=== PATIENT | male | born 1950 | race Caucasian/White ===

== ENCOUNTER → 2016-12-04 | Outpatient (CLI) | payer MEDICARE, OTHER ==
[~2016-12-04] MED LIST: ASPIR 8181 MG PO; BREO ELLIPTA 11 EACH INH; CILOSTAZOL50 MG PO; DALIRESP 500500 MCG PO; ELIQUIS2.5 MG PO; ENDOCET 10-3251 EACH PO; FLAGYL500 MG PO; IMDUR ER TAB 6060 MG PO; LEVEMIR100 UNIT/1 SQ; LIPITOR TAB 2020 MG PO; LOPRESSOR50 MG PO; METOPROLOL SUCC50 MG PO; MULTAQ 400 MG400 MG PO; NEURONTIN 300300 MG PO; NITROSTAT 0.40.4 MG SL; NORVASC 5 MG TAB5 MG PO; NOVOLOG FL100 UNIT/1 SQ; PLAVIX 75 MG TA75 MG PO; PRAVACHOL40 MG PO; PROTONIX40 MG PO; RANEXA1000 MG PO; SINGULAIR10 MG PO; SPIRIVA18 MCG INH; TRICOR145 MG PO; lactinex PO
== END ==
LOC: SLEEP 21:30
DX: G47.33 Obstructive sleep apnea (adult) (pediatric) (principal)
CPT/HCPCS: 95810

== ENCOUNTER 2017-03-03 15:30 | Emergency (ER) | payer MEDICARE, OTHER ==
[2017-03-03 17:00] LABS: HEMOGLOBIN 12.3 gm/dl (14.0-17.5); RED BLOOD COUNT 4.6 M/UL (4.20-5.50); WHITE BLOOD COUNT 8.4 K/UL (4.5-11.0)
[2017-05-23] MEDS ORDERED: RANEXA1000 MG PO (17:58)
[2017-05-23] MEDS ORDERED: LIPITOR TAB 2020 MG PO (17:59)
[2017-05-23] MEDS ORDERED: PROTONIX40 MG PO (17:59)
[2017-05-23] MEDS ORDERED: ASPIR 8181 MG PO (17:59)
[2017-05-23] MEDS ORDERED: IMDUR ER TAB 6060 MG PO (18:00)
[2017-05-23] MEDS ORDERED: TRICOR145 MG PO (18:01)
[2017-05-23] MEDS ORDERED: SINGULAIR10 MG PO (18:01)
[2017-05-23] MEDS ORDERED: LOPRESSOR50 MG PO (18:01)
[2017-05-23] MEDS ORDERED: NORVASC 5 MG TAB5 MG PO (18:02)
[2017-05-23] MEDS ORDERED: PLAVIX 75 MG TA75 MG PO (18:02)
[2017-05-23] MEDS ORDERED: LEVEMIR100 UNIT/1 SQ (18:02)
[2017-05-23] MEDS ORDERED: NOVOLOG FL100 UNIT/1 SQ (22:39)
[2017-05-23] MEDS ORDERED: PRAVACHOL40 MG PO (22:40)
[2017-05-23] MEDS ORDERED: CILOSTAZOL50 MG PO (22:40)
[2017-05-23] MEDS ORDERED: NEURONTIN 300300 MG PO (22:41)
[2017-05-23] MEDS ORDERED: METOPROLOL SUCC50 MG PO (22:41)
[2017-05-23] MEDS ORDERED: ENDOCET 10-3251 EACH PO (22:42)
[2017-05-23] MEDS ORDERED: DALIRESP 500500 MCG PO (22:42)
[2017-05-23] MEDS ORDERED: SPIRIVA18 MCG INH (22:43)
[2017-05-23] MEDS ORDERED: BREO ELLIPTA 11 EACH INH (22:44)
[2017-05-23] MEDS ORDERED: MULTAQ 400 MG400 MG PO (22:53)
[2017-05-23] MEDS ORDERED: ELIQUIS2.5 MG PO (22:54)
[2017-05-24] MEDS ORDERED: ASPIR 8181 MG PO (10:01)
[2017-05-24] MEDS ORDERED: NITROSTAT 0.40.4 MG SL (10:02)
[2017-06-02] MEDS ORDERED: FLAGYL500 MG PO (15:03)
[2017-06-02] MEDS ORDERED: lactinex PO (18:20)
== END 2017-03-03 18:35 | disposition left against medical advice (07) ==
LOC: ER1 15:30
PROVIDERS: Physician Assistant
DX: R07.9 Chest pain, unspecified (principal); I25.810 Atherosclerosis of coronary artery bypass graft(s) without angina pectoris; E11.9 Type 2 diabetes mellitus without complications; I12.9 Hypertensive chronic kidney disease with stage 1 through stage 4 chronic kidney disease, or unspecified chronic kidney disease; N18.3 Chronic kidney disease, stage 3 (moderate); Z95.1 Presence of aortocoronary bypass graft; Z95.5 Presence of coronary angioplasty implant and graft
CPT/HCPCS: 71020; 80053; 82550; 82553; 83874; 83880; 84484; 85025; 93005; 99285

== ENCOUNTER 2020-09-13 10:00 | Inpatient (IN) | payer MEDICARE, OTHER ==
[~2020-09-13] VITALS: Ht 182.9 cm; Wt 115.0 kg
[~2020-09-13 10:00] MED LIST changes: +3 IN 1 COMMODE XX; +AMLODIPINE BESYL5 MG PO; +AZITHROMYCIN250 MG PO; +BACTRIM DS TAB1 EACH PO; +BENTYL 20MG TAB20 MG PO; +BUMETANIDE2 MG PO; +CEFDINIR300 MG PO; +CHRONULAC20 GM/30 M PO; +COREG 12.5MG12.5 MG PO; +CRESTOR 10 MG T10 MG PO; +CRESTOR40 MG PO; +DALIRESP500 MCG PO; +DECADRON6 MG PO; +DEPO-TESTO200 MG/1 M IM; +FEOSOL325 MG PO; +HUMALOG 10100 UNITS/ SC; +IMDUR ER TAB 3030 MG PO; +INSPRA25 MG PO; +IPRAT-ALBUT 0.5-3 ML INH; +ISOSORBIDE MONO60 MG PO; +JARDIANCE10 MG PO; +K-DUR TAB 20 M20 MEQ PO; +LANTUS INS100 UTS/M1 SC; +LEVEMIR 10100 UNITS/ SC; +LEVOCETIRIZINE PO; +LYRICA200 MG PO; +METOPROLOL SUCC25 MG PO; +MIRALAX17 GM PO; +MUCINEX1200 MG PO; +NEOSPORIN OINT15 GM TOP; +NOVOLOG 10100 UNITS1 SC; +NOVOLOG100 UNIT/1 SC; +PERCOCET 10-321 EACH PO; +PLETAL 100 MG100 MG PO; +PROTONIX 20 MG20 MG PO; +PROTONIX40 M1 PO; +REGLAN10 MG PO; +SENNA LAX8.6 MG PO; +SENOKOT8.6 MG PO; +TESSALON PERLE100 MG PO; +TOPROL XL50 MG PO; +TRESIBA FL100 UNIT/1 SQ; +VASCEPA PO; +VENTOLIN HFA 66.7 GM INH; +VIBRAMYCIN100 MG PO; +ZAROXOLYN/DIULO5 MG PO; +ZITHROMAX500 MG PO; +ZOFRAN ODT 4 MG4 MG PO; +ZOFRAN4 MG PO
[2020-09-13 10:22] LABS: HEMOGLOBIN 11.7 gm/dl (14.0-17.5); RED BLOOD COUNT 4.3 M/UL (4.20-5.50); WHITE BLOOD COUNT 6.6 K/UL (4.5-11.0)
[2020-09-13 10:52] LABS: BUN/CREATININE RATIO 20 (0-10)
[2020-09-13] MEDS ORDERED: BASAGLAR K100 UNIT/1 SQ (13:36)
[2020-09-13] MEDS ORDERED: PROTONIX 40 MG40 M1 PO (13:44)
--- NOTE | 2020-09-14 06:12 | NUR ---
FOR THE ENTIRE SHIFT PT REFUSED TO USE URINAL AND WAFFLE MATTRESS.
[2020-09-14 06:33] LABS: HEMOGLOBIN 11.6 gm/dl (14.0-17.5); RED BLOOD COUNT 4.32 M/UL (4.20-5.50)
--- NOTE | 2020-09-15 14:04 | NUR ---
PATIENT HAD CRITICAL LOW POTASSIUM LEVEL OF 2.8 @13:45. PHYSICIAN WAS NOTIFIED AND POTASSIUM REPLACMENT PROTACOL WAS INITIATED.
[2020-09-16 07:37] LABS: BUN/CREATININE RATIO 24 (0-10)
[2020-09-17] MEDS ORDERED: PHENERGAN6.25 MG/5 PO (15:41)
[2020-09-17] MEDS ORDERED: HUMALOG 10100 UNITS/ SC (15:55)
[2020-11-20] MEDS ORDERED: ALL DAY ALLERGY10 M2 PO (08:06)
[2021-01-03] MEDS ORDERED: ALDACTONE25 MG PO (08:05)
[2021-01-23] MEDS ORDERED: NOVOLOG 10100 UNITS1 INJ (07:57)
[2021-01-23] MEDS ORDERED: COREG12.5 MG PO (08:05)
[2021-01-23] MEDS ORDERED: FERROUS SULFAT325 MG PO (08:05)
== END 2020-09-17 18:07 | disposition home or self-care (01) | DRG 291 ==
LOC: ER1 10:00 → CDU 11:35 → MED SURG 4 11:35 → CDU 11:35 → MED SURG 4 15:18
PROVIDERS: Emergency Medicine; Internal Medicine; Physician Assistant Medical; ADMIT Internal Medicine
DX: I13.0 Hypertensive heart and chronic kidney disease with heart failure and stage 1 through stage 4 chronic kidney disease, or unspecified chronic kidney disease (principal); I50.33 Acute on chronic diastolic (congestive) heart failure; J96.10 Chronic respiratory failure, unspecified whether with hypoxia or hypercapnia; N17.9 Acute kidney failure, unspecified; E78.5 Hyperlipidemia, unspecified; I25.10 Atherosclerotic heart disease of native coronary artery without angina pectoris; Z95.1 Presence of aortocoronary bypass graft; G47.33 Obstructive sleep apnea (adult) (pediatric); I87.8 Other specified disorders of veins; E11.51 Type 2 diabetes mellitus with diabetic peripheral angiopathy without gangrene; Z87.891 Personal history of nicotine dependence; Z86.19 Personal history of other infectious and parasitic diseases; E11.22 Type 2 diabetes mellitus with diabetic chronic kidney disease; N18.30 Chronic kidney disease, stage 3 unspecified; I48.0 Paroxysmal atrial fibrillation; Z82.49 Family history of ischemic heart disease and other diseases of the circulatory system; Z83.3 Family history of diabetes mellitus; Z84.89 Family history of other specified conditions; Z90.49 Acquired absence of other specified parts of digestive tract; Z98.42 Cataract extraction status, left eye; Z98.41 Cataract extraction status, right eye; Z96.1 Presence of intraocular lens; E87.6 Hypokalemia; J44.9 Chronic obstructive pulmonary disease, unspecified
CPT/HCPCS: 36415; 36600; 71045; 80048; 80053; 82550; 82553; 82803; 82962; 83605; 83735; 83874; 83880; 84132; 84484; 85025; 85027; 87040; 94640; 94664; 94760; 96365; 96366; 96372; 96375; 96376; 99285; G0378; J0692; J1940; J2405; J3370; J7030; U0002

== ENCOUNTER → 2020-09-22 | Outpatient (CLI) | payer MEDICARE, OTHER ==
[~2020-09-22] MED LIST changes: +ALDACTONE25 MG PO; +ALL DAY ALLERGY10 M2 PO; +BASAGLAR K100 UNIT/1 SQ; +COREG12.5 MG PO; +FERROUS SULFAT325 MG PO; +LINZESS145 MCG PO; +MACROBID 100 M100 MG PO; +NOVOLOG 10100 UNITS1 INJ; +PATADAY2.5 ML EYEBOTH; +PHENERGAN 25 MG25 M1 PO; +PHENERGAN6.25 MG/5 PO; +PROTONIX 40 MG40 M1 PO
[2020-09-22 12:51] LABS: HEMOGLOBIN 13.1 gm/dl (14.0-17.5); RED BLOOD COUNT 4.75 M/UL (4.20-5.50); WHITE BLOOD COUNT 6.8 K/UL (4.5-11.0)
== END ==
LOC: LAB 11:20
PROVIDERS: Internal Medicine Nephrology
DX: N18.30 Chronic kidney disease, stage 3 unspecified (principal); D50.9 Iron deficiency anemia, unspecified
CPT/HCPCS: 36415; 80053; 82570; 82728; 83540; 83550; 84156; 85027

== ENCOUNTER 2020-09-27 15:11 | Emergency (ER) | payer MEDICARE, OTHER ==
[~2020-09-27 15:11] MED LIST changes: -ALDACTONE25 MG PO; -ALL DAY ALLERGY10 M2 PO; -COREG12.5 MG PO; -FERROUS SULFAT325 MG PO; -LINZESS145 MCG PO; -MACROBID 100 M100 MG PO; -NOVOLOG 10100 UNITS1 INJ; -PATADAY2.5 ML EYEBOTH; -PHENERGAN 25 MG25 M1 PO
[2020-09-27 17:02] LABS: RED BLOOD COUNT 5.57 M/UL (4.20-5.50); WHITE BLOOD COUNT 6.5 K/UL (4.5-11.0)
[2020-09-27 17:03] LABS: HEMOGLOBIN 15.4 gm/dl (14.0-17.5)
[2020-09-27 17:22] LABS: BUN/CREATININE RATIO 27 (0-10)
[2020-11-20] MEDS ORDERED: ALL DAY ALLERGY10 M2 PO (08:06)
[2021-01-03] MEDS ORDERED: ALDACTONE25 MG PO (08:05)
[2021-01-23] MEDS ORDERED: NOVOLOG 10100 UNITS1 INJ (07:57)
[2021-01-23] MEDS ORDERED: FERROUS SULFAT325 MG PO (08:05)
[2021-01-23] MEDS ORDERED: COREG12.5 MG PO (08:05)
== END 2020-09-27 19:00 | disposition left against medical advice (07) ==
LOC: ER1 15:11
PROVIDERS: Emergency Medicine
DX: R06.02 Shortness of breath (principal); R11.2 Nausea with vomiting, unspecified; I48.91 Unspecified atrial fibrillation; E11.22 Type 2 diabetes mellitus with diabetic chronic kidney disease; N18.9 Chronic kidney disease, unspecified; Z87.891 Personal history of nicotine dependence; Z53.20 Procedure and treatment not carried out because of patient's decision for unspecified reasons; Z86.16 Personal history of COVID-19; Z86.79 Personal history of other diseases of the circulatory system; Z88.8 Allergy status to other drugs, medicaments and biological substances
CPT/HCPCS: 71045; 80053; 82140; 82550; 82553; 83605; 83690; 83735; 83874; 83880; 84439; 84443; 84484; 85025; 93005; 96374; 99285; J2405

== ENCOUNTER 2020-09-29 14:09 | Emergency (ER) | payer MEDICARE, OTHER ==
[2020-09-29 14:38] LABS: HEMOGLOBIN 14.3 gm/dl (14.0-17.5); RED BLOOD COUNT 5.39 M/UL (4.20-5.50); WHITE BLOOD COUNT 6.1 K/UL (4.5-11.0)
[2020-11-20] MEDS ORDERED: ALL DAY ALLERGY10 M2 PO (08:06)
[2021-01-03] MEDS ORDERED: ALDACTONE25 MG PO (08:05)
[2021-01-23] MEDS ORDERED: NOVOLOG 10100 UNITS1 INJ (07:57)
[2021-01-23] MEDS ORDERED: COREG12.5 MG PO (08:05)
[2021-01-23] MEDS ORDERED: FERROUS SULFAT325 MG PO (08:05)
== END 2020-09-29 21:16 | disposition home or self-care (01) ==
LOC: ER1 14:09
PROVIDERS: Family Medicine
DX: R10.13 Epigastric pain (principal); R63.4 Abnormal weight loss; E11.9 Type 2 diabetes mellitus without complications; I50.9 Heart failure, unspecified; Z88.8 Allergy status to other drugs, medicaments and biological substances
CPT/HCPCS: 71045; 80053; 81001; 82150; 82550; 82553; 83690; 83874; 83880; 84484; 85025; 93005; 96374; 96375; 99284; J2270; J2405; J7040; Q9965

== ENCOUNTER → 2020-11-20 | Day surgery (SDC) | payer MEDICARE, OTHER ==
[~2020-11-20] MED LIST changes: +ALDACTONE25 MG PO; +ALL DAY ALLERGY10 M2 PO; +COREG12.5 MG PO; +FERROUS SULFAT325 MG PO; +LINZESS145 MCG PO; +MACROBID 100 M100 MG PO; +NOVOLOG 10100 UNITS1 INJ; +PATADAY2.5 ML EYEBOTH; +PHENERGAN 25 MG25 M1 PO
== END | disposition home or self-care (01) ==
LOC: OR 07:03
DX: K31.89 Other diseases of stomach and duodenum (principal); K22.8 Other specified diseases of esophagus; I13.0 Hypertensive heart and chronic kidney disease with heart failure and stage 1 through stage 4 chronic kidney disease, or unspecified chronic kidney disease; E11.22 Type 2 diabetes mellitus with diabetic chronic kidney disease; N18.9 Chronic kidney disease, unspecified; D64.9 Anemia, unspecified; D68.9 Coagulation defect, unspecified; E78.5 Hyperlipidemia, unspecified; Z82.49 Family history of ischemic heart disease and other diseases of the circulatory system; Z80.1 Family history of malignant neoplasm of trachea, bronchus and lung; Z90.49 Acquired absence of other specified parts of digestive tract; Z20.822 Contact with and (suspected) exposure to COVID-19; Z88.8 Allergy status to other drugs, medicaments and biological substances
CPT/HCPCS: 82962; J2250; J3010; J7040

== ENCOUNTER 2020-12-07 14:40 | Emergency (ER) | payer MEDICARE, OTHER ==
[~2020-12-07 14:40] MED LIST changes: -ALDACTONE25 MG PO; -COREG12.5 MG PO; -FERROUS SULFAT325 MG PO; -LINZESS145 MCG PO; -MACROBID 100 M100 MG PO; -NOVOLOG 10100 UNITS1 INJ; -PATADAY2.5 ML EYEBOTH; -PHENERGAN 25 MG25 M1 PO
[2020-12-07 15:38] LABS: HEMOGLOBIN 15.4 gm/dl (14.0-17.5); RED BLOOD COUNT 5.39 M/UL (4.20-5.50); WHITE BLOOD COUNT 8.5 K/UL (4.5-11.0)
[2020-12-07 15:58] LABS: BUN/CREATININE RATIO 26 (0-10)
[2021-01-03] MEDS ORDERED: ALDACTONE25 MG PO (08:05)
[2021-01-23] MEDS ORDERED: NOVOLOG 10100 UNITS1 INJ (07:57)
[2021-01-23] MEDS ORDERED: COREG12.5 MG PO (08:05)
[2021-01-23] MEDS ORDERED: FERROUS SULFAT325 MG PO (08:05)
== END 2020-12-07 20:00 | disposition home or self-care (01) ==
LOC: ER1 14:40
PROVIDERS: Family Medicine
DX: I48.20 Chronic atrial fibrillation, unspecified (principal); E11.65 Type 2 diabetes mellitus with hyperglycemia; I25.10 Atherosclerotic heart disease of native coronary artery without angina pectoris; I13.0 Hypertensive heart and chronic kidney disease with heart failure and stage 1 through stage 4 chronic kidney disease, or unspecified chronic kidney disease; E11.22 Type 2 diabetes mellitus with diabetic chronic kidney disease; N18.9 Chronic kidney disease, unspecified; I50.9 Heart failure, unspecified; Z95.1 Presence of aortocoronary bypass graft; Z90.49 Acquired absence of other specified parts of digestive tract; Z87.891 Personal history of nicotine dependence; Z79.899 Other long term (current) drug therapy
CPT/HCPCS: 70450; 71045; 80053; 81001; 82009; 82550; 82553; 83605; 83690; 83735; 83874; 84439; 84443; 84484; 85025; 85610; 93005; 99285

== ENCOUNTER → 2020-12-17 | Outpatient (CLI) | payer MEDICARE, OTHER ==
[~2020-12-17] MED LIST changes: +ALDACTONE25 MG PO; +COREG12.5 MG PO; +FERROUS SULFAT325 MG PO; +LINZESS145 MCG PO; +MACROBID 100 M100 MG PO; +NOVOLOG 10100 UNITS1 INJ; +PATADAY2.5 ML EYEBOTH; +PHENERGAN 25 MG25 M1 PO
== END ==
LOC: HEART 5 14:18
DX: I50.30 Unspecified diastolic (congestive) heart failure (principal); I25.10 Atherosclerotic heart disease of native coronary artery without angina pectoris
CPT/HCPCS: 93306

== ENCOUNTER → 2020-12-23 | Outpatient (CLI) | payer MEDICARE, OTHER, SELFPAY | LOC: HEART 5 12-22 07:30 | DX: I25.10 Atherosclerotic heart disease of native coronary artery without angina pectoris (principal); I50.30 Unspecified diastolic (congestive) heart failure | CPT/HCPCS: 78452; A9502; J2785 ==

== ENCOUNTER 2020-12-27 11:34 | Emergency (ER) | payer MEDICARE, SELFPAY ==
[~2020-12-27 11:34] MED LIST changes: -ALDACTONE25 MG PO; -COREG12.5 MG PO; -FERROUS SULFAT325 MG PO; -LINZESS145 MCG PO; -MACROBID 100 M100 MG PO; -NOVOLOG 10100 UNITS1 INJ; -PATADAY2.5 ML EYEBOTH; -PHENERGAN 25 MG25 M1 PO
[2020-12-27 14:14] LABS: HEMOGLOBIN 15.5 gm/dl (14.0-17.5); RED BLOOD COUNT 5.44 M/UL (4.20-5.50); WHITE BLOOD COUNT 7.6 K/UL (4.5-11.0)
[2020-12-27 14:48] LABS: BUN/CREATININE RATIO 22 (0-10)
[2021-01-03] MEDS ORDERED: ALDACTONE25 MG PO (08:05)
[2021-01-23] MEDS ORDERED: NOVOLOG 10100 UNITS1 INJ (07:57)
[2021-01-23] MEDS ORDERED: COREG12.5 MG PO (08:05)
[2021-01-23] MEDS ORDERED: FERROUS SULFAT325 MG PO (08:05)
== END 2020-12-27 16:18 | disposition home or self-care (01) ==
LOC: ER1 11:34
PROVIDERS: Student in an Organized Health Care Education/Training Program
DX: E11.622 Type 2 diabetes mellitus with other skin ulcer (principal); L97.329 Non-pressure chronic ulcer of left ankle with unspecified severity; E11.51 Type 2 diabetes mellitus with diabetic peripheral angiopathy without gangrene; I11.9 Hypertensive heart disease without heart failure; Z79.01 Long term (current) use of anticoagulants; Z79.899 Other long term (current) drug therapy; F17.290 Nicotine dependence, other tobacco product, uncomplicated
CPT/HCPCS: 73610; 80053; 82550; 82553; 83605; 83874; 84484; 85025; 85652; 86140; 99283

== ENCOUNTER → 2021-01-06 | Outpatient (CLI) | payer MEDICARE, OTHER, SELFPAY ==
[~2021-01-06] MED LIST changes: +ALDACTONE25 MG PO; +COREG12.5 MG PO; +FERROUS SULFAT325 MG PO; +LINZESS145 MCG PO; +MACROBID 100 M100 MG PO; +NOVOLOG 10100 UNITS1 INJ; +PATADAY2.5 ML EYEBOTH; +PHENERGAN 25 MG25 M1 PO
== END ==
LOC: WCC 08:00
DX: E11.51 Type 2 diabetes mellitus with diabetic peripheral angiopathy without gangrene (principal); E11.621 Type 2 diabetes mellitus with foot ulcer; L97.322 Non-pressure chronic ulcer of left ankle with fat layer exposed; I70.262 Atherosclerosis of native arteries of extremities with gangrene, left leg; I13.0 Hypertensive heart and chronic kidney disease with heart failure and stage 1 through stage 4 chronic kidney disease, or unspecified chronic kidney disease; E11.22 Type 2 diabetes mellitus with diabetic chronic kidney disease; E11.65 Type 2 diabetes mellitus with hyperglycemia; N18.9 Chronic kidney disease, unspecified; I50.9 Heart failure, unspecified; J44.9 Chronic obstructive pulmonary disease, unspecified; I48.20 Chronic atrial fibrillation, unspecified; Z87.891 Personal history of nicotine dependence; Z79.4 Long term (current) use of insulin
CPT/HCPCS: 36415; 80053; 83036; G0463

== ENCOUNTER → 2021-01-12 | Outpatient (CLI) | payer MEDICARE, SELFPAY | LOC: US 01-09 10:30 → EXRD 10:48 → US 01-13 11:00 | DX: E11.621 Type 2 diabetes mellitus with foot ulcer (principal); L97.529 Non-pressure chronic ulcer of other part of left foot with unspecified severity; E11.22 Type 2 diabetes mellitus with diabetic chronic kidney disease; N18.30 Chronic kidney disease, stage 3 unspecified; E11.65 Type 2 diabetes mellitus with hyperglycemia; I77.1 Stricture of artery | CPT/HCPCS: 93925 ==

== ENCOUNTER → 2021-01-14 | Outpatient (CLI) | payer MEDICARE, OTHER | LOC: WCC 10:30 | PROC: 0JBP0ZZ Excision of Left Lower Leg Subcutaneous Tissue and Fascia, Open Approach (ICD-10-PCS; principal; 2021-01-14) | DX: E11.622 Type 2 diabetes mellitus with other skin ulcer (principal); L97.822 Non-pressure chronic ulcer of other part of left lower leg with fat layer exposed; E11.52 Type 2 diabetes mellitus with diabetic peripheral angiopathy with gangrene; E11.621 Type 2 diabetes mellitus with foot ulcer; L97.509 Non-pressure chronic ulcer of other part of unspecified foot with unspecified severity; E11.65 Type 2 diabetes mellitus with hyperglycemia; I70.262 Atherosclerosis of native arteries of extremities with gangrene, left leg; I13.0 Hypertensive heart and chronic kidney disease with heart failure and stage 1 through stage 4 chronic kidney disease, or unspecified chronic kidney disease; E11.22 Type 2 diabetes mellitus with diabetic chronic kidney disease; N18.9 Chronic kidney disease, unspecified; I50.9 Heart failure, unspecified; J44.9 Chronic obstructive pulmonary disease, unspecified; I48.20 Chronic atrial fibrillation, unspecified; I25.10 Atherosclerotic heart disease of native coronary artery without angina pectoris; E11.36 Type 2 diabetes mellitus with diabetic cataract; H26.9 Unspecified cataract; I25.2 Old myocardial infarction; M19.90 Unspecified osteoarthritis, unspecified site; E11.40 Type 2 diabetes mellitus with diabetic neuropathy, unspecified; Z79.4 Long term (current) use of insulin; Z79.891 Long term (current) use of opiate analgesic; Z79.899 Other long term (current) drug therapy ==

== ENCOUNTER → 2021-01-20 | Outpatient (CLI) | payer MEDICARE, SELFPAY | LOC: WCC 10:30 | DX: S81.802A Unspecified open wound, left lower leg, initial encounter (principal); E11.42 Type 2 diabetes mellitus with diabetic polyneuropathy; E11.65 Type 2 diabetes mellitus with hyperglycemia; E11.621 Type 2 diabetes mellitus with foot ulcer; L97.509 Non-pressure chronic ulcer of other part of unspecified foot with unspecified severity; I13.0 Hypertensive heart and chronic kidney disease with heart failure and stage 1 through stage 4 chronic kidney disease, or unspecified chronic kidney disease; E11.22 Type 2 diabetes mellitus with diabetic chronic kidney disease; N18.9 Chronic kidney disease, unspecified; I50.9 Heart failure, unspecified; E11.51 Type 2 diabetes mellitus with diabetic peripheral angiopathy without gangrene; I70.262 Atherosclerosis of native arteries of extremities with gangrene, left leg; I25.10 Atherosclerotic heart disease of native coronary artery without angina pectoris; J44.9 Chronic obstructive pulmonary disease, unspecified; I48.20 Chronic atrial fibrillation, unspecified; Z79.4 Long term (current) use of insulin; Z79.891 Long term (current) use of opiate analgesic; Z79.899 Other long term (current) drug therapy; X58.XXXA Exposure to other specified factors, initial encounter ==

== ENCOUNTER 2021-01-23 12:38 | Observation (INO) | payer MEDICARE, OTHER ==
[~2021-01-23] VITALS: Ht 182.9 cm; Wt 107.6 kg
[~2021-01-23 12:38] MED LIST changes: -LINZESS145 MCG PO; -MACROBID 100 M100 MG PO; -PATADAY2.5 ML EYEBOTH; -PHENERGAN 25 MG25 M1 PO
[2021-01-23] MEDS ORDERED: LINZESS145 MCG PO (13:43)
[2021-01-23 13:58] LABS: HEMOGLOBIN 13.8 gm/dl (14.0-17.5); RED BLOOD COUNT 5.05 M/UL (4.20-5.50)
[2021-01-23 14:00] LABS: BUN/CREATININE RATIO 20 (0-10)
[2021-01-23] MEDS ORDERED: LYRICA200 MG PO (16:20)
[2021-01-23] MEDS ORDERED: PATADAY2.5 ML EYEBOTH (16:22)
[2021-01-23] MEDS ORDERED: SINGULAIR10 MG PO (16:23)
[2021-01-23] MEDS ORDERED: BUMETANIDE2 MG PO (23:20)
[2021-01-24 02:33] LABS: HEMOGLOBIN 12.7 gm/dl (14.0-17.5); RED BLOOD COUNT 4.47 M/UL (4.20-5.50); WHITE BLOOD COUNT 5.7 K/UL (4.5-11.0)
[2021-01-24 03:00] LABS: BUN/CREATININE RATIO 19 (0-10)
== END 2021-01-24 15:16 | disposition home or self-care (01) ==
LOC: ER1 12:38 → CDU 14:47 → M/S 19:02
PROVIDERS: Physician Assistant; ADMIT Internal Medicine
DX: R07.89 Other chest pain (principal); R19.00 Intra-abdominal and pelvic swelling, mass and lump, unspecified site; I13.0 Hypertensive heart and chronic kidney disease with heart failure and stage 1 through stage 4 chronic kidney disease, or unspecified chronic kidney disease; E11.22 Type 2 diabetes mellitus with diabetic chronic kidney disease; N18.30 Chronic kidney disease, stage 3 unspecified; I50.9 Heart failure, unspecified; Z20.822 Contact with and (suspected) exposure to COVID-19; I25.10 Atherosclerotic heart disease of native coronary artery without angina pectoris; E11.51 Type 2 diabetes mellitus with diabetic peripheral angiopathy without gangrene; E78.5 Hyperlipidemia, unspecified; R00.1 Bradycardia, unspecified; I48.0 Paroxysmal atrial fibrillation; J44.9 Chronic obstructive pulmonary disease, unspecified; G47.33 Obstructive sleep apnea (adult) (pediatric); E66.01 Morbid (severe) obesity due to excess calories; E11.65 Type 2 diabetes mellitus with hyperglycemia; F17.290 Nicotine dependence, other tobacco product, uncomplicated; Z95.5 Presence of coronary angioplasty implant and graft; Z86.16 Personal history of COVID-19; Z68.31 Body mass index [BMI] 31.0-31.9, adult; Z86.19 Personal history of other infectious and parasitic diseases; Z79.01 Long term (current) use of anticoagulants; Z79.82 Long term (current) use of aspirin; Z79.4 Long term (current) use of insulin; Z79.891 Long term (current) use of opiate analgesic; Z79.899 Other long term (current) drug therapy
CPT/HCPCS: 36415; 71045; 80048; 80053; 82550; 82553; 82962; 83690; 83874; 84484; 85025; 93005; 96374; 99285; G0378; J2405; U0002

== ENCOUNTER → 2021-01-28 | Outpatient (CLI) | payer MEDICARE, SELFPAY ==
[~2021-01-28] MED LIST changes: +LINZESS145 MCG PO; +MACROBID 100 M100 MG PO; +PATADAY2.5 ML EYEBOTH; +PHENERGAN 25 MG25 M1 PO
== END ==
LOC: WCC 11:30
DX: S81.802D Unspecified open wound, left lower leg, subsequent encounter (principal); I13.0 Hypertensive heart and chronic kidney disease with heart failure and stage 1 through stage 4 chronic kidney disease, or unspecified chronic kidney disease; E11.22 Type 2 diabetes mellitus with diabetic chronic kidney disease; N18.9 Chronic kidney disease, unspecified; I50.9 Heart failure, unspecified; E11.65 Type 2 diabetes mellitus with hyperglycemia; J44.9 Chronic obstructive pulmonary disease, unspecified; I48.20 Chronic atrial fibrillation, unspecified; I25.10 Atherosclerotic heart disease of native coronary artery without angina pectoris; E11.51 Type 2 diabetes mellitus with diabetic peripheral angiopathy without gangrene; I70.262 Atherosclerosis of native arteries of extremities with gangrene, left leg; Z79.84 Long term (current) use of oral hypoglycemic drugs; Z79.4 Long term (current) use of insulin; Z79.891 Long term (current) use of opiate analgesic; Z79.899 Other long term (current) drug therapy; X58.XXXD Exposure to other specified factors, subsequent encounter

== ENCOUNTER → 2021-02-03 | Outpatient (CLI) | payer MEDICARE, OTHER | LOC: HEART 5 11:00 | DX: E11.621 Type 2 diabetes mellitus with foot ulcer (principal); L97.509 Non-pressure chronic ulcer of other part of unspecified foot with unspecified severity; N18.31 Chronic kidney disease, stage 3a; E11.65 Type 2 diabetes mellitus with hyperglycemia | CPT/HCPCS: 93970 ==

== ENCOUNTER → 2021-02-04 | Outpatient (CLI) | payer MEDICARE, SELFPAY | LOC: WCC 11:30 | DX: E11.621 Type 2 diabetes mellitus with foot ulcer (principal); L97.929 Non-pressure chronic ulcer of unspecified part of left lower leg with unspecified severity; E11.51 Type 2 diabetes mellitus with diabetic peripheral angiopathy without gangrene; E11.65 Type 2 diabetes mellitus with hyperglycemia; E11.22 Type 2 diabetes mellitus with diabetic chronic kidney disease; I12.9 Hypertensive chronic kidney disease with stage 1 through stage 4 chronic kidney disease, or unspecified chronic kidney disease; I50.9 Heart failure, unspecified; N18.9 Chronic kidney disease, unspecified; J44.9 Chronic obstructive pulmonary disease, unspecified; I25.10 Atherosclerotic heart disease of native coronary artery without angina pectoris; I48.20 Chronic atrial fibrillation, unspecified; I70.262 Atherosclerosis of native arteries of extremities with gangrene, left leg; Z79.4 Long term (current) use of insulin | CPT/HCPCS: 97597 ==

== ENCOUNTER → 2021-02-10 | Outpatient (CLI) | payer MEDICARE, SELFPAY | LOC: WCC 08:00 | DX: E11.621 Type 2 diabetes mellitus with foot ulcer (principal); E11.22 Type 2 diabetes mellitus with diabetic chronic kidney disease; E11.65 Type 2 diabetes mellitus with hyperglycemia; J44.9 Chronic obstructive pulmonary disease, unspecified; I48.20 Chronic atrial fibrillation, unspecified; I50.9 Heart failure, unspecified; I10 Essential (primary) hypertension; Z79.4 Long term (current) use of insulin; I25.10 Atherosclerotic heart disease of native coronary artery without angina pectoris; I70.262 Atherosclerosis of native arteries of extremities with gangrene, left leg; L97.222 Non-pressure chronic ulcer of left calf with fat layer exposed; L97.322 Non-pressure chronic ulcer of left ankle with fat layer exposed | CPT/HCPCS: G0463 ==

== ENCOUNTER → 2021-02-17 | Outpatient (CLI) | payer MEDICARE, OTHER | LOC: WCC 10:53 | DX: E11.621 Type 2 diabetes mellitus with foot ulcer (principal); L97.529 Non-pressure chronic ulcer of other part of left foot with unspecified severity; E11.22 Type 2 diabetes mellitus with diabetic chronic kidney disease; E11.65 Type 2 diabetes mellitus with hyperglycemia; E11.52 Type 2 diabetes mellitus with diabetic peripheral angiopathy with gangrene; J44.9 Chronic obstructive pulmonary disease, unspecified; I48.20 Chronic atrial fibrillation, unspecified; I13.0 Hypertensive heart and chronic kidney disease with heart failure and stage 1 through stage 4 chronic kidney disease, or unspecified chronic kidney disease; I50.9 Heart failure, unspecified; Z79.4 Long term (current) use of insulin; I25.10 Atherosclerotic heart disease of native coronary artery without angina pectoris; I70.262 Atherosclerosis of native arteries of extremities with gangrene, left leg; N18.9 Chronic kidney disease, unspecified | CPT/HCPCS: 97597 ==

== ENCOUNTER → 2021-02-23 | Outpatient (CLI) | payer MEDICARE | LOC: WCC 14:15 | DX: S81.802A Unspecified open wound, left lower leg, initial encounter (principal); I13.0 Hypertensive heart and chronic kidney disease with heart failure and stage 1 through stage 4 chronic kidney disease, or unspecified chronic kidney disease; E11.22 Type 2 diabetes mellitus with diabetic chronic kidney disease; N18.9 Chronic kidney disease, unspecified; I50.9 Heart failure, unspecified; E11.65 Type 2 diabetes mellitus with hyperglycemia; E11.51 Type 2 diabetes mellitus with diabetic peripheral angiopathy without gangrene; I70.262 Atherosclerosis of native arteries of extremities with gangrene, left leg; J44.9 Chronic obstructive pulmonary disease, unspecified; I48.20 Chronic atrial fibrillation, unspecified; I25.10 Atherosclerotic heart disease of native coronary artery without angina pectoris; Z79.4 Long term (current) use of insulin; Z79.891 Long term (current) use of opiate analgesic; Z79.899 Other long term (current) drug therapy; X58.XXXA Exposure to other specified factors, initial encounter ==

== ENCOUNTER 2021-03-12 09:16 | Emergency (ER) | payer MEDICARE ==
[~2021-03-12 09:16] MED LIST changes: -MACROBID 100 M100 MG PO; -PHENERGAN 25 MG25 M1 PO
[2021-03-12 09:55] LABS: HEMOGLOBIN 17.3 gm/dl (14.0-17.5); RED BLOOD COUNT 5.95 M/UL (4.20-5.50); WHITE BLOOD COUNT 8.5 K/UL (4.5-11.0)
[2021-03-12] MEDS ORDERED: MACROBID 100 M100 MG PO (13:57)
[2021-03-12] MEDS ORDERED: PHENERGAN 25 MG25 M1 PO (13:57)
== END 2021-03-12 14:45 | disposition home or self-care (01) ==
LOC: ER1 09:16
PROVIDERS: Physician Assistant
DX: N30.90 Cystitis, unspecified without hematuria (principal); I48.91 Unspecified atrial fibrillation; E78.5 Hyperlipidemia, unspecified; J44.9 Chronic obstructive pulmonary disease, unspecified; I12.9 Hypertensive chronic kidney disease with stage 1 through stage 4 chronic kidney disease, or unspecified chronic kidney disease; E11.22 Type 2 diabetes mellitus with diabetic chronic kidney disease; N18.9 Chronic kidney disease, unspecified; Z95.1 Presence of aortocoronary bypass graft
CPT/HCPCS: 80053; 81001; 82550; 82553; 83605; 83690; 83874; 84484; 85025; 87040; 93005; 96374; 96375; 96376; 99284; J2270; J2405; J7030

== ENCOUNTER → 2021-03-16 | Outpatient (CLI) | payer MEDICARE ==
[~2021-03-16] MED LIST changes: +MACROBID 100 M100 MG PO; +PHENERGAN 25 MG25 M1 PO
== END ==
LOC: WCC 13:00
DX: E11.51 Type 2 diabetes mellitus with diabetic peripheral angiopathy without gangrene (principal); E11.22 Type 2 diabetes mellitus with diabetic chronic kidney disease; I13.0 Hypertensive heart and chronic kidney disease with heart failure and stage 1 through stage 4 chronic kidney disease, or unspecified chronic kidney disease; I50.9 Heart failure, unspecified; N18.9 Chronic kidney disease, unspecified; I70.262 Atherosclerosis of native arteries of extremities with gangrene, left leg; I25.10 Atherosclerotic heart disease of native coronary artery without angina pectoris; J44.9 Chronic obstructive pulmonary disease, unspecified; E11.65 Type 2 diabetes mellitus with hyperglycemia; I48.20 Chronic atrial fibrillation, unspecified
CPT/HCPCS: G0463

== ENCOUNTER → 2021-04-13 | Outpatient (CLI) | payer MEDICARE ==
[2021-04-13 14:01] LABS: RED BLOOD COUNT 4.97 M/UL (4.20-5.50)
== END ==
LOC: LAB 12:19
PROVIDERS: Internal Medicine Gastroenterology
DX: Z51.81 Encounter for therapeutic drug level monitoring (principal); Z79.899 Other long term (current) drug therapy; Z20.822 Contact with and (suspected) exposure to COVID-19
CPT/HCPCS: 36415; 85027; U0002

== ENCOUNTER 2021-10-26 14:32 | Inpatient (IN) | payer MEDICARE, MEDICAID ==
[~2021-10-26] VITALS: Ht 182.9 cm; Wt 108.9 kg
[~2021-10-26 14:32] MED LIST changes: -COREG12.5 MG PO; +COREG25 MG PO
[2021-10-26 15:12] LABS: HEMOGLOBIN 12.8 gm/dl (14.0-17.5); RED BLOOD COUNT 4.69 M/UL (4.20-5.50); WHITE BLOOD COUNT 6.6 K/UL (4.5-11.0)
[2021-10-26 15:33] LABS: BUN/CREATININE RATIO 24 (0-10)
[2021-10-27 01:01] LABS: RED BLOOD COUNT 4.74 M/UL (4.20-5.50); WHITE BLOOD COUNT 7.7 K/UL (4.5-11.0)
[2021-10-27 01:57] LABS: BUN/CREATININE RATIO 21 (0-10)
[2021-10-27] MEDS ORDERED: ISOSORBIDE MON120 MG PO (10:22)
[2021-10-27] MEDS ORDERED: BREZTRI AEROS10.7 GM INH (10:26)
[2021-10-27] MEDS ORDERED: VITAMIN B-121000 MCG PO (10:27)
--- NOTE | 2021-10-28 07:00 | NUR ---
DURING BEDSIDE SHIFT REPORT WITH ISAIAS SOLIMAN RN, INTERRUPTED REPORT AND STATED THAT THE PT HAD NOT VOIDED ALL NIGHT. HOWEVER, I HAD TO REMIND THE THAT THE PT HAD HAD 800 ML OF URINE OUT. I HAD EMPTIED THE URINAL MY SELF.
--- NOTE | 2021-10-28 07:15 | NUR ---
PT RESTLESS TRYING TO GET OUT OF BED SOME CONFUSION NOTED AND HE HAS BEEN AGGRESSIVE WITH REDIRECTION. STATES HE NEEDS TO VOID HAD GOOD OUTPUT ON DATA OFFICER OF 8OO. BLADDER SCANNED AND WAS RETAINING 999 DR SIMMONS CALLED AND ORDERED A CATHETER TO BE INSERTE. 18FR IRVING INSERTED WITH 1600ML DARK YELLOW URINE NOTED AND PT HAD IMMEDIATE RELIEF.
[2021-10-29 04:00] LABS: HEMOGLOBIN 12.4 gm/dl (14.0-17.5); RED BLOOD COUNT 4.56 M/UL (4.20-5.50); WHITE BLOOD COUNT 6.5 K/UL (4.5-11.0)
[2021-10-29 10:15] LABS: CREATININE, URINE 64.7 mg/dL (Not Estab.)
--- NOTE | 2021-10-29 13:00 | NUR ---
PT VOIDED PER URINAL 500CC DARK EUSEBIO COLOR , PVR WITH BLADDER SCAN WAS 0 ML.
--- NOTE | 2021-10-29 16:55 | NUR ---
PT IS SITTING IN CHAIR AT THIS TIME HE DENIES NEEDING TO VOID AT THIS TIME, I REMINDED HIM WE NEED TO BLADDER SCAN IMMEDIATELY AFTER VOIDING LIKE WE DID EARLIER.
[2021-10-30 03:18] LABS: HEMOGLOBIN 12.4 gm/dl (14.0-17.5); RED BLOOD COUNT 4.55 M/UL (4.20-5.50); WHITE BLOOD COUNT 6.4 K/UL (4.5-11.0)
[2021-10-30] MEDS ORDERED: IPRAT-ALBUT 0.5-3 ML NEB (17:39)
[2021-10-30] MEDS ORDERED: FINASTERIDE5 MG PO (17:39)
[2021-10-30] MEDS ORDERED: PREGABALIN75 MG PO (17:39)
[2021-10-30] MEDS ORDERED: FLOMAX 0.4 MG0.4 MG PO (17:39)
[2021-10-30] MEDS ORDERED: KLONOPIN TAB 00.5 MG PO (17:39)
== END 2021-10-30 19:41 | disposition home or self-care (01) | DRG 291 ==
LOC: ER1 14:32 → CDU 16:08 → MED SURG 4 16:08 → CDU 16:08 → MED SURG 4 10-27 11:48
PROVIDERS: Emergency Medicine; Internal Medicine Nephrology; Physician Assistant; ADMIT Internal Medicine
PROC: 0T9B70Z Drainage of Bladder with Drainage Device, Via Natural or Artificial Opening (ICD-10-PCS; principal; 2021-10-28)
DX: I13.0 Hypertensive heart and chronic kidney disease with heart failure and stage 1 through stage 4 chronic kidney disease, or unspecified chronic kidney disease (principal); I50.33 Acute on chronic diastolic (congestive) heart failure; G93.41 Metabolic encephalopathy; J96.01 Acute respiratory failure with hypoxia; N17.9 Acute kidney failure, unspecified; E87.3 Alkalosis; R00.1 Bradycardia, unspecified; Z20.822 Contact with and (suspected) exposure to COVID-19; E11.22 Type 2 diabetes mellitus with diabetic chronic kidney disease; N18.30 Chronic kidney disease, stage 3 unspecified; E66.01 Morbid (severe) obesity due to excess calories; F17.210 Nicotine dependence, cigarettes, uncomplicated; E87.6 Hypokalemia; I25.119 Atherosclerotic heart disease of native coronary artery with unspecified angina pectoris; G47.33 Obstructive sleep apnea (adult) (pediatric); I48.0 Paroxysmal atrial fibrillation; E11.51 Type 2 diabetes mellitus with diabetic peripheral angiopathy without gangrene; D50.9 Iron deficiency anemia, unspecified; J44.9 Chronic obstructive pulmonary disease, unspecified; E78.5 Hyperlipidemia, unspecified; Z86.16 Personal history of COVID-19; Z95.1 Presence of aortocoronary bypass graft; Z95.5 Presence of coronary angioplasty implant and graft; Z90.49 Acquired absence of other specified parts of digestive tract; Z98.890 Other specified postprocedural states; Z83.3 Family history of diabetes mellitus; Z96.1 Presence of intraocular lens; Z82.49 Family history of ischemic heart disease and other diseases of the circulatory system; Z88.8 Allergy status to other drugs, medicaments and biological substances; Z98.42 Cataract extraction status, left eye; Z98.41 Cataract extraction status, right eye; Z83.438 Family history of other disorder of lipoprotein metabolism and other lipidemia; Z79.01 Long term (current) use of anticoagulants; Z79.82 Long term (current) use of aspirin; Z79.4 Long term (current) use of insulin; Z79.899 Other long term (current) drug therapy
CPT/HCPCS: 36415; 36600; 71045; 80048; 80053; 82043; 82140; 82550; 82553; 82570; 82728; 82803; 82962; 83540; 83550; 83735; 83874; 83880; 84156; 84484; 85025; 87040; 93005; 94640; 94760; 96372; 96374; 96376; 97162; 97166; 99285; J1120; J1205; J1650; J1756; J7030; U0002

== ENCOUNTER 2021-11-10 06:29 | Inpatient (IN) | payer MEDICARE ==
[~2021-11-10] VITALS: Ht 182.9 cm; Wt 107.2 kg
[~2021-11-10 06:29] MED LIST changes: +BREZTRI AEROS10.7 GM INH; +FINASTERIDE5 MG PO; +FLOMAX 0.4 MG0.4 MG PO; +IPRAT-ALBUT 0.5-3 ML NEB; +ISOSORBIDE MON120 MG PO; +KLONOPIN TAB 00.5 MG PO; +PREGABALIN75 MG PO; +VITAMIN B-121000 MCG PO
[2021-11-10 07:25] LABS: HEMOGLOBIN 13.1 gm/dl (14.0-17.5); RED BLOOD COUNT 4.87 M/UL (4.20-5.50)
[2021-11-10] MEDS ORDERED: PREGABALIN200 MG PO (12:57)
[2021-11-11 06:16] LABS: HEMOGLOBIN 13.7 gm/dl (14.0-17.5); RED BLOOD COUNT 4.96 M/UL (4.20-5.50); WHITE BLOOD COUNT 4.9 K/UL (4.5-11.0)
[2021-11-12 09:44] LABS: HEMOGLOBIN 12.9 gm/dl (14.0-17.5); RED BLOOD COUNT 4.76 M/UL (4.20-5.50); WHITE BLOOD COUNT 5.7 K/UL (4.5-11.0)
[2021-11-13 04:40] LABS: HEMOGLOBIN 12.5 gm/dl (14.0-17.5); RED BLOOD COUNT 4.53 M/UL (4.20-5.50); WHITE BLOOD COUNT 5.4 K/UL (4.5-11.0)
[2021-11-13] MEDS ORDERED: OMNICEF 300 MG300 MG PO (14:58)
== END 2021-11-13 16:16 | disposition home or self-care (01) | DRG 689 ==
LOC: ER1 06:29 → MED SURG 4 11:45 → CDU 11:45 → CCU 13:50 → MED SURG 4 15:37
PROVIDERS: Physician Assistant Medical; ADMIT Internal Medicine
DX: N30.00 Acute cystitis without hematuria (principal); G93.41 Metabolic encephalopathy; J96.21 Acute and chronic respiratory failure with hypoxia; I13.0 Hypertensive heart and chronic kidney disease with heart failure and stage 1 through stage 4 chronic kidney disease, or unspecified chronic kidney disease; I50.32 Chronic diastolic (congestive) heart failure; N18.4 Chronic kidney disease, stage 4 (severe); R33.8 Other retention of urine; R53.81 Other malaise; E78.5 Hyperlipidemia, unspecified; D64.9 Anemia, unspecified; E11.65 Type 2 diabetes mellitus with hyperglycemia; E11.22 Type 2 diabetes mellitus with diabetic chronic kidney disease; E11.51 Type 2 diabetes mellitus with diabetic peripheral angiopathy without gangrene; I73.9 Peripheral vascular disease, unspecified; I48.0 Paroxysmal atrial fibrillation; N40.1 Benign prostatic hyperplasia with lower urinary tract symptoms; I25.10 Atherosclerotic heart disease of native coronary artery without angina pectoris; E66.9 Obesity, unspecified; B96.20 Unspecified Escherichia coli [E. coli] as the cause of diseases classified elsewhere; J44.9 Chronic obstructive pulmonary disease, unspecified; Z79.899 Other long term (current) drug therapy; Z98.890 Other specified postprocedural states; Z90.49 Acquired absence of other specified parts of digestive tract; Z98.49 Cataract extraction status, unspecified eye; Z87.01 Personal history of pneumonia (recurrent); Z79.82 Long term (current) use of aspirin; Z79.4 Long term (current) use of insulin; Z82.49 Family history of ischemic heart disease and other diseases of the circulatory system; Z83.3 Family history of diabetes mellitus; Z95.5 Presence of coronary angioplasty implant and graft; Z88.8 Allergy status to other drugs, medicaments and biological substances; Z68.32 Body mass index [BMI] 32.0-32.9, adult; Z79.01 Long term (current) use of anticoagulants
CPT/HCPCS: 36415; 36600; 51702; 70450; 71045; 71046; 80048; 80053; 81001; 82140; 82550; 82553; 82803; 82962; 83605; 83874; 83880; 84439; 84443; 84484; 85025; 85610; 86140; 87040; 87077; 87086; 87186; 93005; 94640; 94664; 94760; 96374; 96375; 97116-GP-CQ; 97161; 97166; 99285; J0692; J3370; J7070; U0002

== ENCOUNTER 2021-12-09 10:17 | Emergency (ER) | payer MEDICARE ==
[~2021-12-09 10:17] MED LIST changes: +OMNICEF 300 MG300 MG PO; +PREGABALIN200 MG PO
[2021-12-09 11:45] LABS: HEMOGLOBIN 13.2 gm/dl (14.0-17.5); RED BLOOD COUNT 4.73 M/UL (4.20-5.50); WHITE BLOOD COUNT 5.8 K/UL (4.5-11.0)
[2021-12-09] MEDS ORDERED: ZOFRAN 4 MG TAB4 MG PO (13:11)
== END 2021-12-09 13:30 | disposition home or self-care (01) ==
LOC: ER1 10:17
PROVIDERS: Physician Assistant
DX: R10.13 Epigastric pain (principal); I12.9 Hypertensive chronic kidney disease with stage 1 through stage 4 chronic kidney disease, or unspecified chronic kidney disease; N18.9 Chronic kidney disease, unspecified; R11.0 Nausea; I48.91 Unspecified atrial fibrillation; E78.5 Hyperlipidemia, unspecified; D64.9 Anemia, unspecified; J44.9 Chronic obstructive pulmonary disease, unspecified; N40.0 Benign prostatic hyperplasia without lower urinary tract symptoms; F41.9 Anxiety disorder, unspecified
CPT/HCPCS: 80053; 82150; 82550; 82553; 83690; 84484; 85025; 93005; 96374; 99284; J2405

== ENCOUNTER 2021-12-10 09:48 | Emergency (ER) | payer MEDICARE ==
[~2021-12-10 09:48] MED LIST changes: +ZOFRAN 4 MG TAB4 MG PO
[2021-12-10 10:29] LABS: HEMOGLOBIN 13.7 gm/dl (14.0-17.5); RED BLOOD COUNT 4.86 M/UL (4.20-5.50); WHITE BLOOD COUNT 7.2 K/UL (4.5-11.0)
== END 2021-12-10 11:50 | disposition home or self-care (01) ==
LOC: ER1 09:48
PROVIDERS: Physician Assistant
DX: R11.0 Nausea (principal); R53.1 Weakness; I13.0 Hypertensive heart and chronic kidney disease with heart failure and stage 1 through stage 4 chronic kidney disease, or unspecified chronic kidney disease; I48.91 Unspecified atrial fibrillation; I50.9 Heart failure, unspecified; E78.5 Hyperlipidemia, unspecified; N18.9 Chronic kidney disease, unspecified
CPT/HCPCS: 80053; 81001; 82550; 82553; 83690; 84484; 85025; 93005; 96374; 99284; J2550

== ENCOUNTER → 2022-01-05 | Outpatient (CLI) | payer MEDICARE, OTHER ==
[~2022-01-05] MED LIST changes: +LOPRESSOR 25 MG25 MG PO; +VIRTUSSIN AC 1118 ML PO; +XULTOPHY 100 UNI3 ML SC
== END | disposition home or self-care (01) ==
LOC: WCC 07:38
DX: E11.621 Type 2 diabetes mellitus with foot ulcer (principal); L97.512 Non-pressure chronic ulcer of other part of right foot with fat layer exposed; I48.19 Other persistent atrial fibrillation; I11.0 Hypertensive heart disease with heart failure; I50.9 Heart failure, unspecified; I25.10 Atherosclerotic heart disease of native coronary artery without angina pectoris; E11.40 Type 2 diabetes mellitus with diabetic neuropathy, unspecified; E11.65 Type 2 diabetes mellitus with hyperglycemia; J44.9 Chronic obstructive pulmonary disease, unspecified; Z79.4 Long term (current) use of insulin; Z79.01 Long term (current) use of anticoagulants; Z87.891 Personal history of nicotine dependence

== ENCOUNTER 2022-01-11 13:52 | Inpatient (IN) | payer MEDICARE, MEDICAID ==
[~2022-01-11] VITALS: Ht 182.9 cm; Wt 107.5 kg
[~2022-01-11 13:52] MED LIST changes: -BREZTRI AEROS10.7 GM INH
[2022-01-11 14:48] LABS: HEMOGLOBIN 14.1 gm/dl (14.0-17.5); RED BLOOD COUNT 4.96 M/UL (4.20-5.50); WHITE BLOOD COUNT 5.8 K/UL (4.5-11.0)
[2022-01-12 06:20] LABS: HEMOGLOBIN 14.8 gm/dl (14.0-17.5); RED BLOOD COUNT 5.24 M/UL (4.20-5.50); WHITE BLOOD COUNT 5.6 K/UL (4.5-11.0)
[2022-01-12] MEDS ORDERED: ALBUTEROL2.5 MG/3 M INH (09:23)
[2022-01-12] MEDS ORDERED: JARDIANCE25 MG PO (09:24)
[2022-01-12] MEDS ORDERED: FERRO-TIME325 MG PO (09:32)
[2022-01-12] MEDS ORDERED: TOPROL XL25 MG PO (09:34)
[2022-01-12] MEDS ORDERED: BREZTRI AEROS10.7 GM INH (10:26)
[2022-01-12] MEDS ORDERED: FLOMAX 0.4 MG0.4 MG PO (11:47)
--- NOTE | 2022-01-12 14:48 | NUR ---
ORTHO VITALS 142/64 BP, 63HR LAYING 438/54 BP, 55HR SITTING 80/44 BP, 68HR STANDING
[2022-01-13 06:42] LABS: HEMOGLOBIN 13.8 gm/dl (14.0-17.5); RED BLOOD COUNT 4.89 M/UL (4.20-5.50)
[2022-01-13] MEDS ORDERED: ISMO TAB 20 MG20 MG PO (08:23)
== END 2022-01-13 13:59 | disposition home or self-care (01) | DRG 683 ==
LOC: ER1 13:52 → MED SURG 4 18:47 → CDU 18:47 → MED SURG 4 01-12 04:27
PROVIDERS: Emergency Medicine; Internal Medicine; Internal Medicine Nephrology; Physician Assistant; ADMIT Internal Medicine
DX: N17.9 Acute kidney failure, unspecified (principal); I13.0 Hypertensive heart and chronic kidney disease with heart failure and stage 1 through stage 4 chronic kidney disease, or unspecified chronic kidney disease; I50.32 Chronic diastolic (congestive) heart failure; Z20.822 Contact with and (suspected) exposure to COVID-19; I95.2 Hypotension due to drugs; N18.4 Chronic kidney disease, stage 4 (severe); T44.7X5A Adverse effect of beta-adrenoreceptor antagonists, initial encounter; E11.22 Type 2 diabetes mellitus with diabetic chronic kidney disease; N40.0 Benign prostatic hyperplasia without lower urinary tract symptoms; E11.621 Type 2 diabetes mellitus with foot ulcer; L97.519 Non-pressure chronic ulcer of other part of right foot with unspecified severity; I73.9 Peripheral vascular disease, unspecified; J44.9 Chronic obstructive pulmonary disease, unspecified; E78.5 Hyperlipidemia, unspecified; I48.0 Paroxysmal atrial fibrillation; I25.10 Atherosclerotic heart disease of native coronary artery without angina pectoris; E87.6 Hypokalemia; Z79.01 Long term (current) use of anticoagulants; Z79.82 Long term (current) use of aspirin; Z79.4 Long term (current) use of insulin; Z87.01 Personal history of pneumonia (recurrent); Z95.1 Presence of aortocoronary bypass graft; Z95.5 Presence of coronary angioplasty implant and graft; Z98.890 Other specified postprocedural states; Z90.49 Acquired absence of other specified parts of digestive tract; Z98.42 Cataract extraction status, left eye; Z98.41 Cataract extraction status, right eye; Z82.49 Family history of ischemic heart disease and other diseases of the circulatory system; Z83.3 Family history of diabetes mellitus
CPT/HCPCS: 0240U; 36415; 71045; 80053; 81001; 82550; 82553; 82570; 82962; 83605; 83735; 83880; 84133; 84156; 84300; 84484; 85025; 85027; 87040; 93005; 94640; 94664; 94760; 99285

== ENCOUNTER → 2022-01-13 | Outpatient (CLI) | payer MEDICARE, OTHER ==
[~2022-01-13] MED LIST changes: +ALBUTEROL2.5 MG/3 M INH; +BREZTRI AEROS10.7 GM INH; +FERRO-TIME325 MG PO; +ISMO TAB 20 MG20 MG PO; +JARDIANCE25 MG PO; +TOPROL XL25 MG PO
== END ==
LOC: WCC 10:51
DX: E11.621 Type 2 diabetes mellitus with foot ulcer (principal); L97.512 Non-pressure chronic ulcer of other part of right foot with fat layer exposed; J44.9 Chronic obstructive pulmonary disease, unspecified; I48.19 Other persistent atrial fibrillation; I11.0 Hypertensive heart disease with heart failure; I50.9 Heart failure, unspecified; I25.10 Atherosclerotic heart disease of native coronary artery without angina pectoris; E11.40 Type 2 diabetes mellitus with diabetic neuropathy, unspecified; Z79.4 Long term (current) use of insulin; Z79.01 Long term (current) use of anticoagulants

== ENCOUNTER → 2022-01-28 | Outpatient (CLI) | payer MEDICARE ==
[~2022-01-28] MED LIST changes: +ONDANSETRON ODT4 MG SL
== END ==
LOC: WCC 08:08
DX: E11.621 Type 2 diabetes mellitus with foot ulcer (principal); L97.512 Non-pressure chronic ulcer of other part of right foot with fat layer exposed; J44.9 Chronic obstructive pulmonary disease, unspecified; I48.19 Other persistent atrial fibrillation; I11.0 Hypertensive heart disease with heart failure; I50.9 Heart failure, unspecified; E11.40 Type 2 diabetes mellitus with diabetic neuropathy, unspecified; I25.10 Atherosclerotic heart disease of native coronary artery without angina pectoris; Z79.4 Long term (current) use of insulin; Z79.01 Long term (current) use of anticoagulants; Z79.84 Long term (current) use of oral hypoglycemic drugs; Z79.899 Other long term (current) drug therapy

== ENCOUNTER 2022-01-29 11:14 | Emergency (ER) | payer OTHER ==
[~2022-01-29 11:14] MED LIST changes: -ONDANSETRON ODT4 MG SL
[2022-01-29 12:15] LABS: WHITE BLOOD COUNT 7.1 K/UL (4.5-11.0)
[2022-01-29] MEDS ORDERED: PHENERGAN 25 MG25 M1 PO (17:35)
[2022-01-29] MEDS ORDERED: ONDANSETRON ODT4 MG SL (17:35)
== END 2022-01-29 18:12 | disposition home or self-care (01) ==
LOC: ER1 11:14
PROVIDERS: Physician Assistant
DX: S09.90XA Unspecified injury of head, initial encounter (principal); S10.93XA Contusion of unspecified part of neck, initial encounter; S20.229A Contusion of unspecified back wall of thorax, initial encounter; S20.212A Contusion of left front wall of thorax, initial encounter; R10.12 Left upper quadrant pain; R11.2 Nausea with vomiting, unspecified; N18.9 Chronic kidney disease, unspecified; I51.9 Heart disease, unspecified; I25.10 Atherosclerotic heart disease of native coronary artery without angina pectoris; J44.9 Chronic obstructive pulmonary disease, unspecified; R10.812 Left upper quadrant abdominal tenderness; I48.91 Unspecified atrial fibrillation; Z95.1 Presence of aortocoronary bypass graft; Z79.82 Long term (current) use of aspirin; Z79.01 Long term (current) use of anticoagulants; Z88.8 Allergy status to other drugs, medicaments and biological substances; W01.10XA Fall on same level from slipping, tripping and stumbling with subsequent striking against unspecified object, initial encounter; Y92.009 Unspecified place in unspecified non-institutional (private) residence as the place of occurrence of the external cause
CPT/HCPCS: 70450; 71111; 72125; 72128; 72131; 80053; 81001; 82550; 82553; 83690; 84484; 85025; 93005; 96361; 96374; 96375; 96376; 99284; J2270; J2405; J2550; J7030

== ENCOUNTER → 2022-02-04 | Outpatient (CLI) | payer OTHER ==
[~2022-02-04] MED LIST changes: +ONDANSETRON ODT4 MG SL
== END ==
LOC: WCC 07:51
DX: E11.622 Type 2 diabetes mellitus with other skin ulcer (principal); E11.40 Type 2 diabetes mellitus with diabetic neuropathy, unspecified; I11.0 Hypertensive heart disease with heart failure; I50.9 Heart failure, unspecified; I25.10 Atherosclerotic heart disease of native coronary artery without angina pectoris; I48.19 Other persistent atrial fibrillation; J44.9 Chronic obstructive pulmonary disease, unspecified; Z79.01 Long term (current) use of anticoagulants; Z79.4 Long term (current) use of insulin
CPT/HCPCS: G0463

== ENCOUNTER 2022-02-28 18:25 | Emergency (ER) | payer OTHER ==
[2022-02-28 19:25] LABS: HEMOGLOBIN 13.4 gm/dl (14.0-17.5); RED BLOOD COUNT 4.81 M/UL (4.20-5.50); WHITE BLOOD COUNT 5.9 K/UL (4.5-11.0)
== END 2022-02-28 19:53 | disposition left against medical advice (07) ==
LOC: ER1 18:25
PROVIDERS: Emergency Medicine
DX: R07.81 Pleurodynia (principal); M54.9 Dorsalgia, unspecified
CPT/HCPCS: 71045; 80053; 82550; 82553; 84484; 85025; 93005; 99281

== ENCOUNTER → 2022-03-04 | Outpatient (CLI) | payer OTHER | LOC: NM 08:56 | DX: E11.43 Type 2 diabetes mellitus with diabetic autonomic (poly)neuropathy (principal); K31.84 Gastroparesis | CPT/HCPCS: 78264; A9541 ==

== ENCOUNTER → 2022-04-14 | Outpatient (CLI) | payer MEDICARE | LOC: EMI 09:03 | DX: M51.36 Other intervertebral disc degeneration, lumbar region (principal); M48.061 Spinal stenosis, lumbar region without neurogenic claudication | CPT/HCPCS: 72148 ==

== ENCOUNTER 2022-04-15 20:18 | Emergency (ER) | payer MEDICARE ==
[2022-04-15 20:48] LABS: HEMOGLOBIN 12.9 gm/dl (14.0-17.5); RED BLOOD COUNT 4.55 M/UL (4.20-5.50)
[2022-04-16] MEDS ORDERED: REGLAN10 MG PO (04:12)
[2022-04-16] MEDS ORDERED: ONDANSETRON ODT4 MG SL (04:21)
[2022-04-16] MEDS ORDERED: PHENERGAN 25 MG25 M1 PO (04:21)
== END 2022-04-16 04:47 | disposition home or self-care (01) ==
LOC: ER1 20:18
PROVIDERS: Preventive Medicine Occupational Medicine
DX: R07.81 Pleurodynia (principal); R10.13 Epigastric pain; M48.56XA Collapsed vertebra, not elsewhere classified, lumbar region, initial encounter for fracture; E87.6 Hypokalemia; R77.8 Other specified abnormalities of plasma proteins; E11.22 Type 2 diabetes mellitus with diabetic chronic kidney disease; I50.9 Heart failure, unspecified; I48.91 Unspecified atrial fibrillation; Z95.1 Presence of aortocoronary bypass graft; K21.9 Gastro-esophageal reflux disease without esophagitis
CPT/HCPCS: 71045; 80053; 80061; 82550; 82553; 83690; 84484; 85025; 93005; 96374; 96375; 99284; J2270; J2405

== ENCOUNTER 2022-05-06 19:22 | Emergency (ER) | payer MEDICARE ==
[2022-05-06 19:47] LABS: HEMOGLOBIN 11.7 gm/dl (14.0-17.5); RED BLOOD COUNT 4.3 M/UL (4.20-5.50); WHITE BLOOD COUNT 7.4 K/UL (4.5-11.0)
== END 2022-05-06 23:20 | disposition home or self-care (01) ==
LOC: ER1 19:22
PROVIDERS: Family Medicine
DX: U07.1 COVID-19 (principal); Z23 Encounter for immunization; I13.10 Hypertensive heart and chronic kidney disease without heart failure, with stage 1 through stage 4 chronic kidney disease, or unspecified chronic kidney disease; N18.9 Chronic kidney disease, unspecified; E11.22 Type 2 diabetes mellitus with diabetic chronic kidney disease; I25.2 Old myocardial infarction; E78.5 Hyperlipidemia, unspecified; J44.9 Chronic obstructive pulmonary disease, unspecified; F17.220 Nicotine dependence, chewing tobacco, uncomplicated; Z95.1 Presence of aortocoronary bypass graft
CPT/HCPCS: 0241U; 36600; 70450; 71045; 80053; 81001; 82550; 82553; 82803; 83605; 84484; 85025; 87040; 93005; 99285; M0222

== ENCOUNTER → 2022-05-18 | Outpatient (CLI) | payer MEDICARE | LOC: WCC 08:21 | DX: T25.222A Burn of second degree of left foot, initial encounter (principal); T25.221A Burn of second degree of right foot, initial encounter; E11.40 Type 2 diabetes mellitus with diabetic neuropathy, unspecified; E11.622 Type 2 diabetes mellitus with other skin ulcer; J44.9 Chronic obstructive pulmonary disease, unspecified; I48.19 Other persistent atrial fibrillation; I11.0 Hypertensive heart disease with heart failure; I50.9 Heart failure, unspecified; I25.10 Atherosclerotic heart disease of native coronary artery without angina pectoris; Z79.4 Long term (current) use of insulin; Z79.01 Long term (current) use of anticoagulants ==

== ENCOUNTER 2022-05-25 11:21 | Inpatient (IN) | payer MEDICARE, MEDICAID ==
[~2022-05-25] VITALS: Ht 182.9 cm; Wt 106.2 kg
[~2022-05-25 11:21] MED LIST changes: +SILVADENE20 GM TOP
[2022-05-25 12:47] LABS: HEMOGLOBIN 10.2 gm/dl (14.0-17.5); RED BLOOD COUNT 3.93 M/UL (4.20-5.50); WHITE BLOOD COUNT 9.1 K/UL (4.5-11.0)
[2022-05-25 16:24] LABS: HEMOGLOBIN 9.3 gm/dl (14.0-17.5); RED BLOOD COUNT 3.52 M/UL (4.20-5.50); WHITE BLOOD COUNT 10.7 K/UL (4.5-11.0)
[2022-05-25] MEDS ORDERED: CYANOCOBAL1000 MCG/1 INJ (17:33)
[2022-05-26 05:11] LABS: HEMOGLOBIN 9.9 gm/dl (14.0-17.5); RED BLOOD COUNT 3.81 M/UL (4.20-5.50); WHITE BLOOD COUNT 10.8 K/UL (4.5-11.0)
[2022-05-27 03:43] LABS: HEMOGLOBIN 10.4 gm/dl (14.0-17.5); WHITE BLOOD COUNT 13.1 K/UL (4.5-11.0)
[2022-05-28 05:12] LABS: HEMOGLOBIN 10.3 gm/dl (14.0-17.5); RED BLOOD COUNT 4.03 M/UL (4.20-5.50); WHITE BLOOD COUNT 11.5 K/UL (4.5-11.0)
[2022-05-29 04:28] LABS: HEMOGLOBIN 10.2 gm/dl (14.0-17.5); RED BLOOD COUNT 3.97 M/UL (4.20-5.50)
[2022-05-29 04:36] LABS: WHITE BLOOD COUNT 7.6 K/UL (4.5-11.0)
[2022-05-30 17:10] LABS: ORGANISM ID Not indicated. (.); SPECIMEN SOURCE Urine (.); STREPTOCOCCUS PNEUMONIAE AG Negative (Negative)
[2022-05-31 04:54] LABS: HEMOGLOBIN 9.9 gm/dl (14.0-17.5); RED BLOOD COUNT 3.92 M/UL (4.20-5.50); WHITE BLOOD COUNT 7.6 K/UL (4.5-11.0)
[2022-06-01 04:51] LABS: HEMOGLOBIN 9.8 gm/dl (14.0-17.5); RED BLOOD COUNT 3.94 M/UL (4.20-5.50); WHITE BLOOD COUNT 9.2 K/UL (4.5-11.0)
[2022-06-02 05:12] LABS: HEMOGLOBIN 10.1 gm/dl (14.0-17.5); RED BLOOD COUNT 4.01 M/UL (4.20-5.50)
[2022-06-02 05:18] LABS: WHITE BLOOD COUNT 6.8 K/UL (4.5-11.0)
[2022-06-03 04:17] LABS: HEMOGLOBIN 9.7 gm/dl (14.0-17.5); RED BLOOD COUNT 3.99 M/UL (4.20-5.50)
[2022-06-04 05:20] LABS: HEMOGLOBIN 9.5 gm/dl (14.0-17.5); RED BLOOD COUNT 3.85 M/UL (4.20-5.50); WHITE BLOOD COUNT 6.8 K/UL (4.5-11.0)
[2022-06-05 08:43] LABS: HEMOGLOBIN 9.9 gm/dl (14.0-17.5); RED BLOOD COUNT 3.93 M/UL (4.20-5.50)
[2022-06-06 04:48] LABS: HEMOGLOBIN 9.7 gm/dl (14.0-17.5); RED BLOOD COUNT 3.88 M/UL (4.20-5.50); WHITE BLOOD COUNT 7.8 K/UL (4.5-11.0)
[2022-06-06 06:42] LABS: BUN/CREATININE RATIO 35 (0-10)
--- NOTE | 2022-06-06 13:53 | NUR ---
DRESSINGS TO BILATERAL FEET CHANGED PER ORDER. PT TOLERATED WELL.
[2022-06-07 12:15] LABS: HEMOGLOBIN 9.8 gm/dl (14.0-17.5); RED BLOOD COUNT 3.98 M/UL (4.20-5.50); WHITE BLOOD COUNT 7.1 K/UL (4.5-11.0)
[2022-06-07 12:57] LABS: BUN/CREATININE RATIO 36 (0-10)
[2022-06-08 06:59] LABS: HEMOGLOBIN 9.9 gm/dl (14.0-17.5); WHITE BLOOD COUNT 6.7 K/UL (4.5-11.0)
[2022-06-08 07:24] LABS: BUN/CREATININE RATIO 37 (0-10)
[2022-06-09 02:19] LABS: HEMOGLOBIN 9.6 gm/dl (14.0-17.5); RED BLOOD COUNT 3.87 M/UL (4.20-5.50); WHITE BLOOD COUNT 6.3 K/UL (4.5-11.0)
[2022-06-09 02:37] LABS: BUN/CREATININE RATIO 39 (0-10)
[2022-06-10 02:27] LABS: HEMOGLOBIN 9.9 gm/dl (14.0-17.5); RED BLOOD COUNT 3.95 M/UL (4.20-5.50); WHITE BLOOD COUNT 6.3 K/UL (4.5-11.0)
[2022-06-10 02:58] LABS: BUN/CREATININE RATIO 40 (0-10)
[2022-06-10] MEDS ORDERED: MELATONIN3 MG PO (11:28)
[2022-06-10] MEDS ORDERED: LYRICA200 MG PO (11:41)
[2022-06-10] MEDS ORDERED: LANTUS INS100 UTS/M1 SQ (11:41)
[2022-06-10] MEDS ORDERED: CHRONULAC20 GM/30 M NG (11:41)
[2022-06-10] MEDS ORDERED: ELIQUIS 5 MG TAB5 MG PO (11:41)
[2022-06-10] MEDS ORDERED: LOPRESSOR 25 MG25 MG PO (11:41)
[2022-06-10] MEDS ORDERED: HUMALOG 10100 UNITS/ SC (11:41)
[2022-06-10] MEDS ORDERED: PERCOCET 10-321 EACH PO (11:42)
== END 2022-06-10 16:24 | DRG 870 ==
LOC: ER1 11:21 → CCU 13:40 → CDU 13:40 → PROG CARE 13:40 → CCU 17:57 → PROG CARE 06-06 13:46
PROVIDERS: Emergency Medicine; Internal Medicine; Internal Medicine Pulmonary Disease; Physician Assistant Medical; ADMIT Internal Medicine
PROC: 5A12012 Performance of Cardiac Output, Single, Manual (ICD-10-PCS; principal; 2022-05-25)
PROC: 5A1955Z Respiratory Ventilation, Greater than 96 Consecutive Hours (ICD-10-PCS; 2022-05-25)
PROC: 4A03XR1 Measurement of Arterial Saturation, Peripheral, External Approach (ICD-10-PCS; 2022-05-25)
PROC: 3E043XZ Introduction of Vasopressor into Central Vein, Percutaneous Approach (ICD-10-PCS; 2022-05-25)
PROC: 3E03329 Introduction of Other Anti-infective into Peripheral Vein, Percutaneous Approach (ICD-10-PCS; 2022-05-25)
PROC: 05HN33Z Insertion of Infusion Device into Left Internal Jugular Vein, Percutaneous Approach (ICD-10-PCS; 2022-05-25)
PROC: B544ZZA Ultrasonography of Left Jugular Veins, Guidance (ICD-10-PCS; 2022-05-25)
PROC: B24BZZZ Ultrasonography of Heart with Aorta (ICD-10-PCS; 2022-05-25)
PROC: 0BH17EZ Insertion of Endotracheal Airway into Trachea, Via Natural or Artificial Opening (ICD-10-PCS; 2022-05-25)
PROC: 5A09357 Assistance with Respiratory Ventilation, Less than 24 Consecutive Hours, Continuous Positive Airway Pressure (ICD-10-PCS; 2022-06-01)
PROC: 5A0935A Assistance with Respiratory Ventilation, Less than 24 Consecutive Hours, High Flow/Velocity Cannula (ICD-10-PCS; 2022-06-01)
PROC: 5A09357 Assistance with Respiratory Ventilation, Less than 24 Consecutive Hours, Continuous Positive Airway Pressure (ICD-10-PCS; 2022-06-02)
PROC: 5A0935A Assistance with Respiratory Ventilation, Less than 24 Consecutive Hours, High Flow/Velocity Cannula (ICD-10-PCS; 2022-06-02)
PROC: 5A09357 Assistance with Respiratory Ventilation, Less than 24 Consecutive Hours, Continuous Positive Airway Pressure (ICD-10-PCS; 2022-06-03)
PROC: 5A09357 Assistance with Respiratory Ventilation, Less than 24 Consecutive Hours, Continuous Positive Airway Pressure (ICD-10-PCS; 2022-06-04)
PROC: 5A0935A Assistance with Respiratory Ventilation, Less than 24 Consecutive Hours, High Flow/Velocity Cannula (ICD-10-PCS; 2022-06-06)
DX: A41.9 Sepsis, unspecified organism (principal); G93.41 Metabolic encephalopathy; J96.01 Acute respiratory failure with hypoxia; U07.1 COVID-19; R57.0 Cardiogenic shock; R65.21 Severe sepsis with septic shock; I46.2 Cardiac arrest due to underlying cardiac condition; I21.A1 Myocardial infarction type 2; J15.1 Pneumonia due to Pseudomonas; I50.33 Acute on chronic diastolic (congestive) heart failure; J44.0 Chronic obstructive pulmonary disease with (acute) lower respiratory infection; I13.0 Hypertensive heart and chronic kidney disease with heart failure and stage 1 through stage 4 chronic kidney disease, or unspecified chronic kidney disease; N17.9 Acute kidney failure, unspecified; E87.0 Hyperosmolality and hypernatremia; G93.1 Anoxic brain damage, not elsewhere classified; E11.22 Type 2 diabetes mellitus with diabetic chronic kidney disease; N18.30 Chronic kidney disease, stage 3 unspecified; I48.0 Paroxysmal atrial fibrillation; I25.10 Atherosclerotic heart disease of native coronary artery without angina pectoris; E11.51 Type 2 diabetes mellitus with diabetic peripheral angiopathy without gangrene; I73.9 Peripheral vascular disease, unspecified; E87.6 Hypokalemia; E66.9 Obesity, unspecified; G47.33 Obstructive sleep apnea (adult) (pediatric); Z96.1 Presence of intraocular lens; L89.156 Pressure-induced deep tissue damage of sacral region; L89.816 Pressure-induced deep tissue damage of head; E78.5 Hyperlipidemia, unspecified; R13.10 Dysphagia, unspecified; T25.222A Burn of second degree of left foot, initial encounter; T25.221A Burn of second degree of right foot, initial encounter; N40.0 Benign prostatic hyperplasia without lower urinary tract symptoms; Z98.42 Cataract extraction status, left eye; Z79.4 Long term (current) use of insulin; Z79.899 Other long term (current) drug therapy; Z90.49 Acquired absence of other specified parts of digestive tract; Z79.01 Long term (current) use of anticoagulants; Z82.49 Family history of ischemic heart disease and other diseases of the circulatory system; Z98.41 Cataract extraction status, right eye; Z95.5 Presence of coronary angioplasty implant and graft; Z79.82 Long term (current) use of aspirin
CPT/HCPCS: 31500; 36415; 36600; 51702; 70450; 70551; 71045; 71250; 74018; 80048; 80053; 80202; 81001; 82550; 82553; 82803; 82962; 83605; 83735; 83880; 84100; 84132; 84484; 85025; 85027; 85610; 85730; 86140; 87040; 87070; 87077; 87081; 87086; 87186; 87205; 87278; 87899; 92526; 92610; 92950; 93005; 93308; 94002; 94003; 94640; 94660; 94664; 94667; 94668; 94760; 96374; 96375; 96376; 97110; 97110-GP-CQ; 97163; 97167; 97530; 97530-GP-CQ; 99285; A6212; C9113; J0171; J0461; J1120; J1644; J1650; J2185; J2250; J2370; J2405; J3010; J3370; J3480; J7050; J7070; Q9965; U0002